=== PATIENT | female | born 1995 | race Caucasian/White ===

== ENCOUNTER 2023-05-01 10:05 | Outpatient (CLI) | payer OTHER, SELFPAY ==
[2023-05-01 11:08] LABS: Basophils Absolute Auto 0.1 K/mm3 (0.0-0.1); Basophils Percent Auto 0.9 % (0.2-1.2); Eosinophils Absolute Auto 0.2 K/mm3 (0-0.3); Eosinophils Percent Auto 2.6 % (0-4.4); Hematocrit 43.5 % (37.0-47.0); Immature Granulocyte Absolute 0.02 K/mm3 (0.00-0.031); Immature Granulocyte Percent A 0.3 % (0-0.5); Lymphocytes Absolute Auto 3.33 K/mm3 (0.9-3.2); Mean Corpuscular HGB Conc 32.2 g/dl (32-36); Mean Corpuscular Hemoglobin 29.9 pg (26-34); Mean Corpuscular Volume 92.8 fl (80-100); Mean Platelet Volume 9.7 fl (7.4-10.4); Monocytes Absolute Auto 0.5 K/mm3 (0.1-0.6); Monocytes Percent Auto 6.2 % (2.6-8.5); Neutrophils Absolute Auto 3.8 K/mm3 (1.3-6.7); Platelet Count Result 361 k/mm3 (150-375); Red Blood Count 4.69 M/mm3 (4.2-5.4); Red Cell Distribution Width 12.1 % (11.5-14.5); White Blood Count 7.9 K/mm3 (4.5-10.0)
[2023-05-01 11:22] LABS: Alanine Aminotransferase 44 U/L (6-35); Albumin Level 4.5 g/dL (3.5-5.1); Alkaline Phosphatase 85 U/L (38-126); Anion Gap 6 mmol/L (8-16); Aspartate Amino Transferase 31 U/L (14-36); Bilirubin,Total 0.8 mg/dL (0.2-1.3); Blood Urea Nitrogen 13 mg/dL (7-17); Calcium 9.4 mg/dL (8.4-10.2); Carbon Dioxide 31 mmol/L (22-30); Chloride 102 mmol/L (98-107); Cholesterol 174 mg/dL (0-200); Estimated Glomerular Filt Rate > 60; Glucose 94 mg/dL (65-110); HDL Direct 44 mg/dL; Potassium 4.3 mmol/L (3.4-5.0); Sodium 139 mmol/L (137-145); Triglycerides 62 mg/dL (<150)
[2023-05-01 11:33] LABS: LDL Cholesterol Direct 108 mg/dL
[2023-05-01 11:57] LABS: Vitamin D 25 Hydroxy 28.6 ng/mL
[2023-05-01 21:34] LABS: Free T4 Free Thyroxine Reflex 0.55 ng/dL (0.78-2.19)
== END 2023-05-01 10:06 | disposition home or self-care (01) ==
LOC: ANHLAB 10:10
PROVIDERS: PCP Internal Medicine; Visit Provider Internal Medicine
DX: E55.9 Vitamin D deficiency, unspecified (principal); Z79.899 Other long term (current) drug therapy
CPT/HCPCS: 36415; 80053; 80061; 82306; 84439; 84443; 85025

== ENCOUNTER 2024-02-10 11:05 | Outpatient (CLI) | payer OTHER, SELFPAY ==
[2024-02-10 11:44] LABS: Hemoglobin 13.2 g/dL (12.0-15.0); Mean Corpuscular HGB Conc 33.8 g/dl (32-36); Mean Corpuscular Hemoglobin 31.3 pg (26-34); Mean Corpuscular Volume 92.4 fl (80-100); Mean Platelet Volume 9.4 fl (7.4-10.4); Platelet Count Result 314 k/mm3 (150-375); Red Blood Count 4.22 M/mm3 (4.2-5.4); Red Cell Distribution Width 11.9 % (11.5-14.5); White Blood Count 7.8 K/mm3 (4.5-10.0)
[2024-02-10 11:57] LABS: Alanine Aminotransferase 17 U/L (6-35); Albumin Level 4.3 g/dL (3.5-5.1); Alkaline Phosphatase 69 U/L (38-126); Anion Gap 6 mmol/L (4-12); Aspartate Amino Transferase 20 U/L (14-36); Bilirubin,Total 0.5 mg/dL (0.2-1.3); Blood Urea Nitrogen 9 mg/dL (7-17); Calcium 9.1 mg/dL (8.4-10.2); Carbon Dioxide 29 mmol/L (22-30); Chloride 108 mmol/L (98-107); Estimated Glomerular Filt Rate > 60; Glucose 89 mg/dL (65-110); Potassium 3.9 mmol/L (3.4-5.0); Sodium 143 mmol/L (137-145)
[2024-02-10 12:41] LABS: HAV RESULT Negative (Negative)
[2024-02-12 09:13] LABS: Alpha-1-Antitrypsin, QN 134 mg/dL (83-199); Ceruloplasmin 23 mg/dL (14-48)
== END 2024-02-10 11:06 | disposition home or self-care (01) ==
PROVIDERS: PCP Internal Medicine; Visit Provider Internal Medicine Gastroenterology
DX: R74.8 Abnormal levels of other serum enzymes (principal); K76.0 Fatty (change of) liver, not elsewhere classified
CPT/HCPCS: 36415; 80053; 81329; 82103; 82105; 82390; 82728; 83520; 84443; 85027; 86038; 86039; 86709

== ENCOUNTER 2024-04-21 13:37 | Outpatient (CLI) | payer OTHER, SELFPAY ==
[2024-04-21 14:59] LABS: Free T4 Free Thyroxine 0.52 ng/dL (0.78-2.19)
--- OUTSIDE RECORDS SUMMARY | 2024-04-23 18:33 | XMS_ITS | Data Portability ---
Author Organization [place] [facility] [employer], Main Office Address [address] [place] [address] Care Team Providers Care Aboriginal Education Teacher Name Role Phone BRAIN KIM Primary Care Provider BENJA LOO Video Clerk [phone] Assessment Encounter Date Assessment Date Assessment LastModified by Organization Details LastModified Time 08/12/2023 08/12/2023 05/01/2023: FT4 0.55L ALT 44 05/10/2023: TSH 31.9H, FT4 0.47 Hep panel/GGT: Neg LDL 99 [email or web address] Not available 08/12/2023 17:28:01 02/19/2024 02/19/2024 05/10/2023: Hep panel: Neg 05/01/2023: FT4 0.55L ALT 44 05/10/2023: TSH 31.9H, FT4 0.47 Hep panel/GGT: Neg LDL 99 [email or web address] Not available 02/19/2024 18:08:27 Plan of Treatment Reminders Order Date Submit Date Provider Last Modified By Organization Details Last Modified Time Details Appointments Any 15 2024 09:45A M Brain jackson MD Not available Not available Not available Lab vitamin D, 25-hydrox y, total, serum 2023 024 [email or web address] [facility] (Lab), [address] [place], [address], 02/25/2024 08:45:27 CBC w/ auto diff [address] (Lab), [address] [place], [address], 02/25/2024 08:45:27 lipid panel, serum [address] (Lab), [address] [place], [address], 02/25/2024 08:45:27 CMP, serum or plasma [address] (Lab), [address] [place], [address], 02/25/2024 08:45:27 TSH, serum or plasma [address] (Lab), [address] [place], [address], 02/25/2024 08:45:27 T4, free, serum [address] (Lab), [address] [place], [address], 02/25/2024 08:45:27 vitamin D, 25-hydrox y, total, serum [address] (Lab), [address] [place], [address], 02/20/2024 16:35:48 CBC w/ auto diff [address] (Lab), [address] [place], [address], 02/20/2024 16:35:49 lipid panel, serum [address] (Lab), [address] [place], [address], 02/20/2024 16:35:49 CMP, serum or plasma [email or web address] (Lab), [address] [place], [address], 02/20/2024 16:35:49 TSH, serum or plasma 2023 024 [facility] (Lab), [address] [place], [address], 04/21/2024 16:47:15 T4, free, serum [email or web address] (Lab), [address] [place], [address], 02/20/2024 16:35:49 Referral hepatolog ist referral 2023 024 evan Loo MD, [address], [place], [address], 12/16/2023 09:14:07 obstetric sebas and gynecolog ist referral 2023 024 [email or web address] Chery MD, [address], [place], [address], 02/10/2024 12:42:25 hepatolog ist referral 2023 024 evan Loo MD, [address], [place], [address], 02/10/2024 12:42:12 obstetric sebas and gynecolog ist referral - Please call patient to schedule. 2023 024 JOSE ALFREDO Chery MD, [address], [place], [address], 02/24/2024 18:52:44 hepatolog ist referral 2023 024 [email or web address] Benja Loo MD, [address], [place], [address], 02/24/2024 18:39:37 Procedures None recorded. Surgeries None recorded. Imaging None recorded. Medication Orders phentermi ne 37.5 mg tablet 2023 024 [id number], [address], [place], [id number], 02/19/2024 17:28:23 phentermi ne 37.5 mg tablet 2023 024 [id number], [address], [address], 02/19/2024 17:28:23 Zepbound 2.5 mg/0.5 mL subcutane ous pen injector 2023 024 [facility]6926, [address] [place] [address], [address], 02/19/2024 17:28:38 Zepbound 7.5 mg/0.5 mL subcutane ous pen injector 2023 024 [facility] #6926, [address], [address], 02/19/2024 18:07:18 Patient TargetsNo targets recorded. Patient InstructionsNo instructions recorded. Reason for Referral Workers Compensation Claims Analyst Referral for Li edwin enzymes level above reference range Referring Physician: Brain Kim, Internal Medicine, Encounter Date: 05/20/2023 Workers Compensation Claims Analyst Referral for Li edwin enzymes level above reference range Referring Physician: Brain Kim, Internal Medicine, Encounter Date: 08/12/2023 Publications Editor And Gynecologis t Referral for Gynecologic examination Referring Physician: Brain Kim Internal Medicine, Encounter Date: 08/12/2023 Workers Compensation Claims Analyst Referral for Li edwin enzymes level above reference range Referring Physician: Brain Kim, Internal Medicine, Encounter Date: 02/19/2024 Publications Editor And Gynecologis t Referral for Gynecologic examination Please call patient to schedule. Referring Physician: Brain Kim Internal Medicine, Encounter Date: 02/19/2024 Results Created Date Observation Date Name Description Value Unit Range Abnormal Flag Note LastModifiedBy Organization Detail LastModifiedTime 05/10/19 24 05/10/2023 CBC/C OMPLE TE BLD COUNT W/DIF F white blood cells 7.9 x10'3 /uL 4.2-10 .8 Not Available [facility] (Lab) [address] [place], [address], 05/10/2023 13:49:18 05/10/19 24 05/10/2023 CBC/C OMPLE TE BLD COUNT W/DIF F red blood cells 4.46 x10'6 /uL 3.80-5 .20 Not Available [facility] (Lab) [address] [place], [address], 05/10/2023 13:49:18 05/10/19 24 05/10/2023 CBC/C OMPLE TE BLD COUNT W/DIF F hemoglobin 13.8 g/dL 12.0-1 5.6 Not Available [facility] (Lab) [address] [place], [address], 05/10/2023 13:49:18 05/10/19 24 05/10/2023 CBC/C OMPLE TE BLD COUNT W/DIF F hematocrit 40.7 % 35.7-4 5.7 Not Available [facility] (Lab) [address] [place], [address], 05/10/2023 13:49:18 05/10/19 24 05/10/2023 CBC/C OMPLE TE BLD COUNT W/DIF F mean red cell volume 91.3 fL 82.0-9 9.0 Not Available [facility] (Lab) [address] [place], [address], 05/10/2023 13:49:18 05/10/19 24 05/10/2023 CBC/C OMPLE TE BLD COUNT W/DIF F mean red cell hemoglobin 30.9 pg 27.0-3 3.0 Not Available [facility] (Lab) [address] [facility] [place], [address], 05/10/2023 13:49:18 05/10/19 24 05/10/2023 CBC/C OMPLE TE BLD COUNT W/DIF F mean RBC HGB concentratio n 33.9 g/dL 31.0-3 6.0 Not Available [facility] (Lab) [address] [place], [address], 05/10/2023 13:49:18 05/10/19 24 05/10/2023 CBC/C OMPLE TE BLD COUNT W/DIF F red cell distribution width 12.0 % 11.8-1 5.5 Not Available [facility] (Lab) [address] [place], [address], 05/10/2023 13:49:18 05/10/19 24 05/10/2023 CBC/C OMPLE TE BLD COUNT W/DIF F platelets 343 x10'3 /uL 150-40 0 Not Available [facility] (Lab) [address] [place], [address], 05/10/2023 13:49:18 05/10/19 24 05/10/2023 CBC/C OMPLE TE BLD COUNT W/DIF F mean platelet volume 9.9 fL 9.0-12 .4 Not Available [facility] (Lab) [address] [place], [address], 05/10/2023 13:49:18 05/10/19 24 05/10/2023 CBC/C OMPLE TE BLD COUNT W/DIF F neutrophils 47.4 % 39.0-7 2.0 Not Available [facility] (Lab) [address] [place], [address], 05/10/2023 13:49:18 05/10/19 24 05/10/2023 CBC/C OMPLE TE BLD COUNT W/DIF F lymphocytes 43.6 % 16.0-4 7.0 Not Available [facility] (Lab) [address] [place], [address], 05/10/2023 13:49:18 05/10/19 24 05/10/2023 CBC/C OMPLE TE BLD COUNT W/DIF F monocytes 5.8 % 5.0-12 .0 Not Available [facility] (Lab) [address] [place], [address], 05/10/2023 13:49:18 05/10/19 24 05/10/2023 CBC/C OMPLE TE BLD COUNT W/DIF F eosinophils 2.3 % 1.0-7. 0 Not Available [facility] (Lab) [address] [place], [address], 05/10/2023 13:49:18 05/10/19 24 05/10/2023 CBC/C OMPLE TE BLD COUNT W/DIF F basophils 0.6 % 0.0-2. 0 Not Available [facility] (Lab) [address] [place], [address], 05/10/2023 13:49:18 05/10/19 24 05/10/2023 CBC/C OMPLE TE BLD COUNT W/DIF F immature granulocytes 0.3 % 0.00-0 .50 Not Available [facility] (Lab) [address] [place], [address], 05/10/2023 13:49:18 05/10/19 24 05/10/2023 CBC/C OMPLE TE BLD COUNT W/DIF F neutrophils, absolute count 3.76 x10'3 /uL 1.5-8. 0 Not Available [facility] (Lab) [address] [place], [address], 05/10/2023 13:49:18 05/10/19 24 05/10/2023 CBC/C OMPLE TE BLD COUNT W/DIF F lymphocytes, absolute count 3.46 x10'3 /uL 1.07-3 .43 high Not Available [facility] (Lab) [address] [place], [address], 05/10/2023 13:49:18 05/10/19 24 05/10/2023 CBC/C OMPLE TE BLD COUNT W/DIF F monocytes, absolute count 0.46 x10'3 /uL 0.29-0 .99 Not Available [facility] (Lab) [address] [place], [address], 05/10/2023 13:49:18 05/10/19 24 05/10/2023 CBC/C OMPLE TE BLD COUNT W/DIF F eosinophils, absolute count 0.18 x10'3 /uL 0.02-0 .53 Not Available [facility] (Lab) [address] [place], [address], 05/10/2023 13:49:18 05/10/19 24 05/10/2023 CBC/C OMPLE TE BLD COUNT W/DIF F basophils, absolute count 0.05 x10'3 /uL 0.01-0 .08 Not Available [facility] (Lab) [address] [place], [address], 05/10/2023 13:49:18 05/10/19 24 05/10/2023 CBC/C OMPLE TE BLD COUNT W/DIF F immature granulocytes ,absolute 0.02 x10'3 /uL 0.00-0 .05 Not Available [facility] (Lab) [address] [place], [address], 05/10/2023 13:49:18 05/10/19 24 05/10/2023 CBC/C OMPLE TE BLD COUNT W/DIF F nucleated red blood cells 0.0 % -0 Not Available [facility] (Lab) [address] [place], [address], 05/10/2023 13:49:18 05/10/19 24 05/10/2023 CBC/C OMPLE TE BLD COUNT W/DIF F NRBC# 0.00 x10'3 /uL Not Available [facility] (Lab) [address] [place], [address], 05/10/2023 13:49:18 05/10/19 24 05/10/2023 GGT/G -GLUT AMYL TRANS FERAS E gamma-glutam yl transferase 22 U/L 12-43 Not Available [facility] (Lab) [address] [place], [address], 05/10/2023 13:53:11 05/10/19 24 05/10/2023 LIPID PANEL cholesterol 152 mg/dL 140-19 9 NIH OSVALDO NSUS RECOM MENDA TION FOR CINDY STERO L: ADULT CHILD LOW RISK: <200 <170 BORDE RLINE : <200- 239 ----- HIGH RISK: >240 >200 Not Available [facility] (Lab) [address] [place], [address], 05/10/2023 13:53:13 05/10/19 24 05/10/2023 LIPID PANEL triglyceride s 54 mg/dL 0-150 NIH OSVALDO NSUS REPOR T RECOM MENDA TION FOR TRIGL YCERI LINDSAY: ADULT CHILD LOW RISK: <150 ----- BODER LINE: 150-1 99 ----- HIGH RISK: >200 ----- Not Available [facility] (Lab) [address] [place], [address], 05/10/2023 13:53:13 05/10/19 24 05/10/2023 LIPID PANEL HDL cholesterol 42 mg/dL 40- Not Available [facility] (Lab) [address] [place], [address], 05/10/2023 13:53:13 05/10/19 24 05/10/2023 LIPID PANEL LDL cholesterol, calculated 99 mg/dL 0-130 NIH OSVALDO NSUS REPOR T RECOM MENDA TIONS FOR LDL: ADULT CHILD LOW RISK <130 <110 (OPTI MAL LDL) <100 ----- BORDE RLINE : 130-1 59 ----- HIGH RISK: >160 >130 A TRIGL YCERI DE RESUL T >400 INVAL IDATE S THE CALCU LATIO N FOR LDL FRACT IONAT ION - THE LDL RESUL T WILL NOT BE REPOR JOHANA. Not Available [facility] (Lab) [address] [place], [address], 05/10/2023 13:53:13 05/10/19 24 05/10/2023 COMPR EHENS NONA METAB OLIC PANEL sodium 138 mmol/ L 137-14 5 Not Available [facility] (Lab) [address] [place], [address], 05/10/2023 13:53:15 05/10/19 24 05/10/2023 COMPR EHENS NONA METAB OLIC PANEL potassium 4.4 mmol/ L 3.5-5. 1 Not Available [facility] (Lab) [address] [place], [address], 05/10/2023 13:53:15 05/10/19 24 05/10/2023 COMPR EHENS NONA METAB OLIC PANEL chloride 105 mmol/ L 98-107 Not Available [facility] (Lab) [address] [place], [address], 05/10/2023 13:53:15 05/10/19 24 05/10/2023 COMPR EHENS NONA METAB OLIC PANEL carbon dioxide 24 mmol/ L 22-30 Not Available [facility] (Lab) [address] [place], [address], 05/10/2023 13:53:15 05/10/19 24 05/10/2023 COMPR EHENS NONA METAB OLIC PANEL anion gap 13.4 mmol/ L 14-22 low Not Available [facility] (Lab) [address] [place], [address], 05/10/2023 13:53:15 05/10/19 24 05/10/2023 COMPR EHENS NONA METAB OLIC PANEL glucose 89 mg/dL 70-99 Not Available [facility] (Lab) [address] [place], [address], 05/10/2023 13:53:15 05/10/19 24 05/10/2023 COMPR EHENS NONA METAB OLIC PANEL BUN 12 mg/dL 8-19 Not Available [facility] (Lab) [address] [place], [address], 05/10/2023 13:53:15 05/10/19 24 05/10/2023 COMPR EHENS NONA METAB OLIC PANEL creatinine 0.92 mg/dL 0.66-1 .25 Not Available [facility] (Lab) [address] [place], [address], 05/10/2023 13:53:15 05/10/19 24 05/10/2023 COMPR EHENS NONA METAB OLIC PANEL GFR >60 Refer ence Range : [place]ow ge GFR Healt hy Adult : >60 mL/mi n/1.7 3 m2 Chron ic Kidne y Disea se: 15-60 mL/mi n/1.7 3 m2 Kidne y Failu re: <15/m L/min /1.73 m2 www.n iddk. nih.g ov The MDRD study equat ion has not been valid ated in child uri <18 years of age; pregn ant women ; the elder ly >85 years of age; or in some racia l or ethni c subgr oups, such as Hispa nics. Outsi de the valid ated abby eters , estim ated GFR is less accur ate, requi ring clini sunny judgm ent on a case- by-ca se basis . Clini sunny inter preta tion for other races and ages must be made by the clini shawna. The MDRD study equat ion has not been valid ated for the evalu ation of serum creat inine relat ed to nutri pedro l statu s or medic ation usage . For perso ns <18 years of age, a pedia tric GFR calcu lator is avail able on the [facility] websi te: https ://ww w.kid erna.o rg/pr ofess ional s/kdo qi/gf r_cal culat or Not Available [facility] (Lab) [address] [place], [address], 05/10/2023 13:53:15 05/10/19 24 05/10/2023 COMPR EHENS NONA METAB OLIC PANEL alkaline phosphatase 79 U/L 38-126 Not Available [facility] (Lab) [address] [place], [address], 05/10/2023 13:53:15 05/10/19 24 05/10/2023 COMPR EHENS NONA METAB OLIC PANEL alanine aminotransfe rase 29 U/L 0-35 Not Available [facility] (Lab) [address] [place], [address], 05/10/2023 13:53:15 05/10/19 24 05/10/2023 COMPR EHENS NONA METAB OLIC PANEL aspartate aminotransfe rase 27 U/L 15-37 Not Available [facility] (Lab) [address] [place], [address], 05/10/2023 13:53:15 05/10/19 24 05/10/2023 COMPR EHENS NONA METAB OLIC PANEL bilirubin, total 0.90 mg/dL 0.20-1 .30 Not Available [facility] (Lab) [address] [place], [address], 05/10/2023 13:53:15 05/10/19 24 05/10/2023 COMPR EHENS NONA METAB OLIC PANEL calcium 9.4 mg/dL 8.4-10 .2 Not Available [facility] (Lab) [address] [place], [address], 05/10/2023 13:53:15 05/10/19 24 05/10/2023 COMPR EHENS NONA METAB OLIC PANEL total protein 7.2 g/dL 6.3-8. 2 Not Available [facility] (Lab) [address] [place], [address], 05/10/2023 13:53:15 05/10/19 24 05/10/2023 COMPR EHENS NONA METAB OLIC PANEL albumin 4.4 g/dL 3.4-5. 0 Not Available [facility] (Lab) [address] [place], [address], 05/10/2023 13:53:15 05/10/19 24 05/10/2023 COMPR EHENS NONA METAB OLIC PANEL globulin 2.8 g/dL 2.6-4. 2 Not Available [facility] (Lab) [address] [place], [address], 05/10/2023 13:53:15 05/10/19 24 05/10/2023 COMPR EHENS NONA METAB OLIC PANEL A/G ratio 1.6 ratio 1.0-2. 0 Not Available [facility] (Lab) [address] [place], [address], 05/10/2023 13:53:15 05/10/19 24 05/10/2023 VITAM IN D 25-HY DROXY [id number] 39.9 NG/mL 30-100 Vitam in D Statu s: Defic ient: <20 ng/mL Insuf ficie nt: 20-29 ng/mL Suffi cient : 30-10 0 ng/mL Not Available [facility] (Lab) [address] [place], [address], 05/10/2023 13:53:46 05/10/19 24 05/10/2023 T4 FREE free T4 0.47 NG/dL 0.78-2 .19 low Not Available [facility] (Lab) [address] [place], [address], 05/10/2023 13:54:43 05/10/19 24 05/10/2023 TSH thyroid-stim ulating hormone 31.900 uIU/m L 0.465- 4.680 high Not Available [facility] (Lab) [address] [place], [address], 05/10/2023 14:13:13 05/10/19 24 05/10/2023 HEPAT ITIS ACUTE PANEL hepatitis A IgM antibody NON-RE ACTIVE non-re active For sampl es repor johana as Lilliam bloodine React nona for HAV IgM, it is recom justine d a new speci men be obtai tova in 2 weeks and retes johana. Not Available [facility] (Lab) [address] [place], [address], 05/10/2023 14:31:29 05/10/19 24 05/10/2023 HEPAT ITIS ACUTE PANEL hepatitis A virus signal/cutof 0.02 0.00-0 .79 Not Available [facility] (Lab) [address] [place], [address], 05/10/2023 14:31:29 05/10/19 24 05/10/2023 HEPAT ITIS ACUTE PANEL hepatitis B core IgM antibody NON-RE ACTIVE non-re active Not Available [facility] (Lab) [address] [place], [address], 05/10/2023 14:31:29 05/10/19 24 05/10/2023 HEPAT ITIS ACUTE PANEL HBV core IgM signal/cutof f 0.04 0.00-1 .10 Not Available [facility] (Lab) [address] [place], [address], 05/10/2023 14:31:29 05/10/19 24 05/10/2023 HEPAT ITIS ACUTE PANEL hepatitis B surface antigen NON-RE ACTIVE non-re active All speci mens react nona for Hepat itis B Surfa ce Antig en will refle x to refer ral lab confi rmato ry testi ng. Not Available [facility] (Lab) [address] [place], [address], 05/10/2023 14:31:29 05/10/19 24 05/10/2023 HEPAT ITIS ACUTE PANEL HBV surf.antigen signal/cutof f 0.12 0.00-0 .99 Not Available [facility] (Lab) [address] [place], [address], 05/10/2023 14:31:29 05/10/19 24 05/10/2023 HEPAT ITIS ACUTE PANEL hepatitis C antibody NON-RE ACTIVE non-re active All speci mens react nona for Hepat itis C Virus antib nathen will refle x to PCR confi rmato ry testi ng. Pleas e allow 48-72 hours for resul ts. Not Available [facility] (Lab) [address] [place], [address], 05/10/2023 14:31:29 05/10/19 24 05/10/2023 HEPAT ITIS ACUTE PANEL hepatitis C virus signal/cutof 0.06 0.00-0 .99 Not Available [facility] (Lab) [address] [place], [address], 05/10/2023 14:31:29 05/10/19 24 US, head + neck, soft tissu e [facility] [address] [place] [address] [phone] [id number] Patien t Name: DEDE MARIE Access ion #: [id number] Sex: F : 1995 7 Dictat ed By: Maria Del Carmen vergara Attend ing Physic sebas: NATEMAGED GUY Orderi ng Physic sebas: NAIMA MAGED ROMERO Exam Date: 2023 09:38 AM Exam Name: US NECK/H EAD SOFT TISSUE Admitt ing Diagno sis(es ): CLINIC AL INFORM ATION: Hypoth yroid. TECHNI QUE: Graysc sujey sonogr aphic imagin g of the thyroi d gland was perfor med, assist ed by color Dopple r techni que. COMPAR JOSE ANGEL: Prior ultras ound dated 023. FINDIN GS: The thyroi d gland is diffus paulie hetero geneou s with increa sed vascul ar flow. A cluste r visual ized. The right thyroi d lobe measur es 4.7 x 1.3 x 1.7 cm. The left thyroi d lobe measur es 4.3 x 1.5 x 1.3 cm. The thyroi d isthmu s measur es 0.4 cm in thickn ess. IMPRES MARTINA: Hetero geneou s thyroi d gland with decrea sed vascul ar flow. No thyroi d nodule s visual ized. No signif icant interv al change . Electr onical ly Signed by: Maria Del Carmen vergara at 2023 11:42: 50 AM Page 1 [facility] (Imaging) [address] [place], [address], 01/09/2024 15:36:34 05/10/19 24 05/10/2023 US, thyro id No observ ation record ed. [email or web address] [facility] [address] [place], [address], 01/09/2024 15:36:35 05/10/19 24 US, abdom en, limit ed [facility] [address] [place] [address] Patien t Name: DEDE MARIE Access ion #: [id number] Sex: F : 1995 7 Dictat ed By: Maria Del Carmen vergara Attend ing Physic sebas: LAST JUANZafarKODI Michel Orderwillard ramirez Physic sebas: MAGED JUAN Exam Date: 2023 09:38 AM Exam Name: US ABD/LT D/ORG/ UQ/GB Admitt ing Diagno sis(es ): CLINIC AL INFORM ATION: Elevat ed liver enzyme s. TECHNI QUE: Graysc sujey sonogr aphic imagin g of the right upper quadra nt of the abdome n was perfor med, assist ed by color Dopple r techni ques. COMPAR JOSE ANGEL: Prior ultras ound dated 023. FINDIN GS: The gallbl adder wall measur es 2.2 mm in thickn ess, within normal limits . No stones are seen. The common bile duct measur es 4.2 mm in diamet er, within normal limits . The liver is enlarg ed, measur ing up to 18.9 cm in cranio caudal dimens ion. Increa sed echoge nicity of the liver sugges ting fatty infilt ration . The pancre as is partly obscur ed, likely by bowel gas. The visual ized portio ns appear normal . The right kidney measur es 11.2 cm. There is no stone or hydron ephros is. Right renal cortic al echoge nicity is within normal limits . Mild cortic al thinni ng noted. IMPRES MARTINA: No sonogr aphic eviden ce of acute cholec ystiti s. Hepato megaly and hepati c steato sis. Additi onal nonacu te findin gs as detail ed above. Electr onical ly Signed by: Maria Del Carmen vergara at 2023 11:45: 08 AM Page 1 [email or web address] [facility] (Imaging) [address] [place], [address], 01/09/2024 15:36:36 05/10/19 24 05/10/2023 US, liver No observ ation record ed. [email or web address] [facility] [address] [place], [address], 01/09/2024 15:36:36 Result Notes None recorded. Problems Name Problem SNOMED Code Status Onset Date Resolution Date Notes Provider Name and Address Organization Details Recorded Time Non-alcoho lic fatty liver 672079050 Active 2022 Not Available [facility] 3 06:48:21 Vitamin D deficiency 91358855 Active 2022 Not Available [facility] 3 06:48:21 Hypothyroi dism 18254259 Active 2022 Not Available [facility] 3 06:48:21 Sprain of cruciate ligament of knee 17774898 Active Not Available [facility] 3 06:48:21 Liver enzymes level above reference range 520413826 Active 2022 Not Available [facility] 3 06:48:21 [id number] Completed 201811/18/2018 Not Available [facility] 3 06:48:21 Acute conjunctiv itis 70511017 Active 2022 Grace Bashir null, [facility] 3 10:50:37 Low back pain 075966416 Active 2023 Brain harper MD [address], [address] , [facility] 4 17:37:55 Obesity 360695530 Active 2023 Brain harper MD [address], [address] , [facility] 4 14:31:38 Hyperlipid emia 82579671 Active 2023 LEA Townsend, [facility] 4 11:40:30 Upper respirator y infection 40287181 Active 2023 LEA Townsend, [facility] 4 16:24:33 Puncture wound of finger 751044803 Active 2023 ALEJANDRO Ward null, [facility] 4 11:54:16 Allergic reaction to insect bite 759678798 Active 2023 Irene Briones MA null, [facility] 4 14:53:44 Nausea 787608584 Active 2023 Irene Briones MA null, [facility] 4 14:33:45 Problem Notes None recorded. Procedures Surgical History Date Name Laterality Status Provider Name and Address Organization Details Recorded Time reconstruction of anterior cruciate ligament of knee joint completed Not Available [facility] 06:40:04 Imaging Results Imaging Date Name Status LastModified by Organiz ation Details LastModified Time 05/10/2023 US, head + neck, soft tissue completed [address] (Imaging) [address] [place], [address], 01/09/2024 15:36:34 05/10/2023 US, thyroid completed [address] [place], [address], 01/09/2024 15:36:35 05/10/2023 US, abdomen, limited completed [address] (Imaging) [address] [place], [address], 01/09/2024 15:36:36 05/10/2023 US, liver completed [address] [place], [address], 01/09/2024 15:36:36 Procedure Notes None recorded. Medical Equipment None Reported. Allergies No known drug allergies Medications Name Sig Start Date Stop Date Status Note LastModified by Organization Details LastModified Time cyclobenz aprine 10 mg tablet Take 1 tablet every day by oral route as needed for 15 days. 05/06 completed Not Available Not Available Not Available Mirena 21 mcg/24 hr (up to 8 years) 52 mg intrauter ine device Take 1 device by intraute rine route. active Not Available Not Available No t Available ondansetr on HCl 4 mg tablet Take 1 tablet twice a day by oral route as needed. active Not Available Not Available No t Available phentermi ne 37.5 mg tablet TAKE 1 TABLET BY MOUTH EVERY DAY FOR 30 DAYS 02/18 completed Not Available Not Available Not Available meloxicam 7.5 mg tablet Take 1 tablet twice a day by oral route as needed for 15 days. 05/06 completed Not Available Not Available Not Available levothyro xine 100 mcg tablet TAKE 1 TABLET BY MOUTH EVERY DAY 2023 active Not Available Not Available Not Avai lable DOK 100 mg capsule TK 1 C PO BID. 12/18 completed Not Available Not Available Not Available levothyro xine 50 mcg tablet TAKE 1 TABLET BY MOUTH EVERY MORNING ON AN EMPTY STOMACH 05/23 completed dose increase Not Available Not Available Not Available erythromy earl 5 mg/gram (0.5 %) eye ointment APPLY 1 CM RIBBON INTO THE LOWER CONJUNCT IVAL SACS IN THE AFFECTED EYES THREE TIMES DAILY FOR 7 DAYS 05/06 completed Not Available Not Available Not Available ergocalci ferol (vitamin D2) 1,250 mcg (50,000 unit) capsule TAKE 1 CAPSULE BY MOUTH EVERY WEEK 05/06 completed Not Available Not Available Not Available epinephri ne 0.3 mg/0.3 mL injection , auto-inje ctor Use as directed if you have a SEVER reaction to insect bites. active Not Available Not Available No t Available ibuprofen 600 mg tablet 03/29 completed Not Available Not Available Not Available medroxypr ogesteron e 150 mg/mL intramusc ular suspensio n INJECT 150MG INTO MUSCLE Q 3 MONTHS UTD 05/27 completed Not Available Not Available Not Available amoxicill in 875 mg-potass ium clavulana te 125 mg tablet TAKE 1 TABLET BY MOUTH TWICE DAILY 08/11 completed Not Available Not Available Not Available Poly-Iron 150 mg iron capsule TK 1 C PO BID. 03/29 completed Not Available Not Available Not Available medroxypr ogesteron e 150 mg/mL intramusc ular syringe INJECT INTRAMUS CULARLY DIRECTED EVERY 12 WEEKS active Not Available Not Available No t Available rosuvasta tin 40 mg tablet TAKE 1 TABLET BY MOUTH EVERY DAY 2023 active Not Available Not Available Not Avai lable Wegovy 0.25 mg/0.5 mL subcutane ous pen injector Inject by subcutan eous route for 28 days. 08/05 completed Not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
== END 2024-04-21 13:38 | disposition home or self-care (01) ==
PROVIDERS: PCP Internal Medicine; Visit Provider Internal Medicine
DX: E03.9 Hypothyroidism, unspecified (principal)
CPT/HCPCS: 36415; 84439; 84443

== ENCOUNTER 2025-02-15 09:53 | Outpatient (CLI) | payer OTHER, SELFPAY ==
[2025-02-15 10:18] LABS: Hematocrit 40.6 % (37.0-47.0); Hemoglobin 13.5 g/dL (12.0-15.0); Immature Granulocyte Percent A 0.3 % (0-0.5); Lymphocytes Absolute Auto 2.48 K/mm3 (0.9-3.2); Mean Corpuscular HGB Conc 33.3 g/dl (32-36); Mean Corpuscular Hemoglobin 30.5 pg (26-34); Mean Corpuscular Volume 91.6 fl (80-100); Nucleated Red Blood Cells Absolute Auto 0.000 K/mm3 (0.0-0.012); Nucleated Red Blood Cells Perc 0.0 % (0.0-0.2); Platelet Count Result 340 k/mm3 (150-375); Red Blood Count 4.43 M/mm3 (4.2-5.4); White Blood Count 7.7 K/mm3 (4.5-10.0)
[2025-02-15 10:40] LABS: Alanine Aminotransferase 22 U/L (6-35); Albumin Level 4.4 g/dL (3.5-5.1); Alkaline Phosphatase 65 U/L (38-126); Anion Gap 5 mmol/L (4-12); Aspartate Amino Transferase 33 U/L (14-36); Bilirubin,Total 0.7 mg/dL (0.2-1.3); Blood Urea Nitrogen 9 mg/dL (7-17); Calcium 9.4 mg/dL (8.4-10.2); Carbon Dioxide 27 mmol/L (22-30); Chloride 105 mmol/L (98-107); Cholesterol 119 mg/dL (0-200); Estimated Glomerular Filt Rate > 60; Glucose 95 mg/dL (65-110); HDL Direct 56 mg/dL; Potassium 4.6 mmol/L (3.4-5.0); Sodium 137 mmol/L (137-145); Total Protein 7.3 g/dL (6.3-8.2); Triglycerides 42 mg/dL (<150)
[2025-02-15 10:58] LABS: Free T4 Free Thyroxine 1.57 ng/dL (0.78-2.19)
[2025-02-15 11:23] LABS: Thyroid Stimulating Hormone 2.420 uIU/mL (0.465-4.680)
== END 2025-02-15 09:54 | disposition home or self-care (01) ==
LOC: ANHLAB 09:56
PROVIDERS: PCP Internal Medicine; Visit Provider Internal Medicine
DX: E03.9 Hypothyroidism, unspecified (principal); E78.5 Hyperlipidemia, unspecified; E55.9 Vitamin D deficiency, unspecified
CPT/HCPCS: 36415; 80053; 80061; 82306; 84439; 84443; 85025